=== PATIENT | female | born 1985 | race Caucasian/White ===

== ENCOUNTER 2017-07-04 01:58 | Emergency (ER) | payer MEDICAID ==
[~2017-07-04] VITALS: Ht 165.1 cm; Wt 96.8 kg
[~2017-07-04 01:58] MED LIST: ASPIRIN 32325 MG/TA1 PO; CEPHALEXIN500 M1 PO; CLEOCIN HC150 MG/CAP PO; FLAGYL500 M1 PO; IBUPROFEN PAIN200 MG PO; LEXAPRO10 MG PO; NORCO 325 MG-51 TAB PO; PEN-V250 MG PO; PRENATAL MULTI1 EAC3 PO; TYLENOL 325MG325 MG PO; ZOFRAN ODT8 M1 PO
[2017-07-04] MEDS ORDERED: [UNRECOGNIZED DRUG - OTHER] PO (02:39)
[2017-07-04] MEDS ORDERED: AMOXICILLI400 MG/52 PO (02:43)
[2017-07-04 02:51] VITALS: BP 119/75
== END 2017-07-04 02:48 | disposition home or self-care (01) ==
LOC: ED 01:58
DX: J02.0 Streptococcal pharyngitis (principal); F41.9 Anxiety disorder, unspecified; F32.9 Major depressive disorder, single episode, unspecified

== ENCOUNTER → 2018-05-08 | Outpatient (CLI) | payer MEDICAID ==
[~2018-05-08] MED LIST changes: +AMOXICILLI400 MG/52 PO; +[UNRECOGNIZED DRUG - OTHER] PO
[2018-05-08 13:51] LABS: BASO # 0.1 (0.02-0.10); EOS # 0.6 (0.04-0.40); EOS % 7.2 % (1.0-5.0); HEMATOCRIT 39.1 % (37.0-47.0); HEMOGLOBIN 13.7 g/dL (12.5-16.0); LYMPH# 2.9 (1.50-4.00); MEAN CELL VOLUME 90 fl (78-100); MEAN CORPUSCULAR HEMOGLOBIN 31 pg (27-31); MEAN CORPUSCULAR HGB CONC 35 g/dL (33-37); MEAN PLATELET VOLUME 9.7 fl (7.4-10.4); MONO # 0.8 (0.20-0.80); NEU # 4.5 (1.40-6.50); PLATELET COUNT 306 K/mm3 (130-400); RED BLOOD COUNT 4.37 M/mm3 (4.10-5.30); RED CELL DISTRIBUTION WIDTH 12.6 % (11.5-14.5); WHITE BLOOD COUNT 8.9 K/mm3 (4.8-10.8)
[2018-05-08 14:06] LABS: ALBUMIN 3.8 g/dL (3.5-5.0); CALCIUM 8.8 mg/dL (8.4-10.2); TOTAL BILIRUBIN 0.3 mg/dL (0.2-1.3); TOTAL PROTEIN 7.5 g/dL (6.3-8.2)
== END ==
LOC: LAB 13:37
PROVIDERS: Family Medicine
DX: Z00.00 Encounter for general adult medical examination without abnormal findings (principal)

== ENCOUNTER 2018-06-23 17:29 | Emergency (ER) | payer MEDICAID ==
[~2018-06-23] VITALS: Ht 162.6 cm; Wt 90.9 kg
[2018-06-23] MEDS ORDERED: CAMRESE1 TAB PO (17:43)
[2018-06-23] MEDS ORDERED: ESCITALOPRAM20 MG PO (17:43)
[2018-06-23] MEDS ORDERED: PRAZOSIN (17:43)
[2018-06-23 19:08] LABS: BASO # 0.1 (0.02-0.10); EOS # 0.4 (0.04-0.40); EOS % 4.5 % (1.0-5.0); HEMATOCRIT 36.1 % (37.0-47.0); HEMOGLOBIN 12.9 g/dL (12.5-16.0); MEAN CELL VOLUME 90 fl (78-100); MEAN CORPUSCULAR HEMOGLOBIN 32 pg (27-31); MEAN CORPUSCULAR HGB CONC 36 g/dL (33-37); MEAN PLATELET VOLUME 9.7 fl (7.4-10.4); MONO # 0.7 (0.20-0.80); NEU # 4.2 (1.40-6.50); PLATELET COUNT 288 K/mm3 (130-400); RED CELL DISTRIBUTION WIDTH 12.3 % (11.5-14.5); WHITE BLOOD COUNT 8.3 K/mm3 (4.8-10.8)
[2018-06-23 19:22] LABS: URINE APPEARANCE CLEAR; URINE BILIRUBIN NEGATIVE (NEGATIVE); URINE BLOOD 250 ery/uL (NEGATIVE); URINE COLOR YELLOW; URINE GLUCOSE NEGATIVE (NEGATIVE); URINE KETONE NEGATIVE (NEGATIVE); URINE LEUKOCYTE ESTERASE NEGATIVE (NEGATIVE); URINE MUCUS PRESENT (NOT PRESENT); URINE NITRATE NEGATIVE (NEGATIVE); URINE PROTEIN(semi-quant) TRACE mg/dL (NEGATIVE); URINE UROBILINOGEN NORMAL (NORMAL); URINE WBC 0-1 /hpf (0-3)
[2018-06-23] MEDS ORDERED: NORCO 325 MG-51 TA1 PO (20:16)
[2018-06-23 20:24] VITALS: BP 143/66
== END 2018-06-23 20:24 | disposition home or self-care (01) ==
LOC: ED 17:29
PROVIDERS: Family Medicine
DX: N83.201 Unspecified ovarian cyst, right side (principal); N93.8 Other specified abnormal uterine and vaginal bleeding; Z79.3 Long term (current) use of hormonal contraceptives; Z79.899 Other long term (current) drug therapy
CPT/HCPCS: J1885

== ENCOUNTER → 2018-09-30 | Outpatient (CLI) | payer MEDICAID ==
[~2018-09-30] MED LIST changes: +CAMRESE1 TAB PO; +ESCITALOPRAM20 MG PO; +NORCO 325 MG-51 TA1 PO; +PRAZOSIN
== END ==
LOC: RAD 11:16
DX: R05 Cough (principal)

== ENCOUNTER → 2018-10-23 | Outpatient (CLI) | payer MEDICAID | LOC: RAD 11:02 | DX: R60.0 Localized edema (principal); R93.6 Abnormal findings on diagnostic imaging of limbs; M79.604 Pain in right leg ==

== ENCOUNTER → 2018-11-05 | Outpatient (CLI) | payer MEDICAID ==
[2018-11-05 16:54] LABS: BASO # 0.1 (0.02-0.10); EOS # 0.4 (0.04-0.40); EOS % 3.9 % (1.0-5.0); HEMATOCRIT 40.3 % (37.0-47.0); HEMOGLOBIN 13.7 g/dL (12.5-16.0); LYMPH# 3.3 (1.50-4.00); MEAN CELL VOLUME 89 fl (78-100); MEAN CORPUSCULAR HEMOGLOBIN 30 pg (27-31); MEAN CORPUSCULAR HGB CONC 34 g/dL (33-37); MEAN PLATELET VOLUME 9.8 fl (7.4-10.4); MONO # 0.9 (0.20-0.80); NEU # 5.4 (1.40-6.50); PLATELET COUNT 353 K/mm3 (130-400); RED BLOOD COUNT 4.52 M/mm3 (4.10-5.30); RED CELL DISTRIBUTION WIDTH 12.5 % (11.5-14.5)
[2018-11-05 17:33] LABS: ALBUMIN 4.1 g/dL (3.5-5.0); CALCIUM 9.1 mg/dL (8.4-10.2); POTASSIUM 4.1 mmol/L (3.6-5.0); TOTAL BILIRUBIN 0.3 mg/dL (0.2-1.3); TOTAL PROTEIN 7.9 g/dL (6.3-8.2)
[2018-11-05 17:44] LABS: D-DIMER 0.94 mg/L FEU (0.15-0.50)
== END ==
LOC: LAB 16:24
PROVIDERS: Physician Assistant
DX: M79.604 Pain in right leg (principal)

== ENCOUNTER → 2018-11-07 | Outpatient (CLI) | payer MEDICAID | LOC: VAS 10:01 → RAD 10:01 | DX: R22.41 Localized swelling, mass and lump, right lower limb (principal); M79.604 Pain in right leg ==

== ENCOUNTER → 2019-02-14 | Outpatient (CLI) | payer MEDICAID | LOC: RAD 16:33 | DX: M79.671 Pain in right foot (principal); M79.672 Pain in left foot; R10.32 Left lower quadrant pain; W19.XXXA Unspecified fall, initial encounter ==

== ENCOUNTER 2019-07-06 15:02 | Emergency (ER) | payer MEDICAID ==
[~2019-07-06] VITALS: Ht 162.6 cm; Wt 92.3 kg
[2019-07-06] MEDS ORDERED: AMITRIPTYLINE H25 M2 PO (15:33)
[2019-07-06] MEDS ORDERED: PROAIR HFA0.09 MG/AC IH (15:34)
[2019-07-06 16:15] VITALS: BP 140/93
== END 2019-07-06 16:16 | disposition home or self-care (01) ==
LOC: ED 15:02
DX: S60.221A Contusion of right hand, initial encounter (principal); J45.909 Unspecified asthma, uncomplicated; F17.210 Nicotine dependence, cigarettes, uncomplicated; W01.198A Fall on same level from slipping, tripping and stumbling with subsequent striking against other object, initial encounter; Y92.009 Unspecified place in unspecified non-institutional (private) residence as the place of occurrence of the external cause

== ENCOUNTER 2019-08-10 18:48 | Emergency (ER) | payer OTHER ==
[~2019-08-10 18:48] MED LIST changes: +AMITRIPTYLINE H25 M2 PO; +PROAIR HFA0.09 MG/AC IH
[2019-08-10] MEDS ORDERED: CYCLOBENZAPRINE10 M1 PO (18:54)
[2019-08-10] MEDS ORDERED: METHOCARBAMOL500 M1 PO (18:54)
[2019-08-10] MEDS ORDERED: ESCITALOPRAM20 MG PO (18:55)
[2019-08-10 20:11] VITALS: BP 145/85
== END 2019-08-10 20:17 | disposition home or self-care (01) ==
LOC: ED 18:48
DX: S93.401A Sprain of unspecified ligament of right ankle, initial encounter (principal); S90.31XA Contusion of right foot, initial encounter; F41.9 Anxiety disorder, unspecified; F32.9 Major depressive disorder, single episode, unspecified; F17.210 Nicotine dependence, cigarettes, uncomplicated; X50.1XXA Overexertion from prolonged static or awkward postures, initial encounter; Y99.0 Civilian activity done for income or pay

== ENCOUNTER → 2020-01-05 | Outpatient (CLI) | payer MEDICAID ==
[~2020-01-05] MED LIST changes: +CYCLOBENZAPRINE10 M1 PO; +METHOCARBAMOL500 M1 PO
== END ==
LOC: LAB 12:07
DX: J45.909 Unspecified asthma, uncomplicated (principal)

== ENCOUNTER 2020-06-17 09:00 | Outpatient (RCR) | payer MEDICAID | END 2020-06-17 09:30 | disposition still patient (30) | LOC: PT 09:00 | DX: M54.5 Low back pain (principal); G89.29 Other chronic pain ==

== ENCOUNTER → 2020-06-28 | Outpatient (CLI) | payer MEDICAID ==
[2020-06-28 16:47] LABS: EOS # 0.1 (0.04-0.40); EOS % 1.1 % (1.0-5.0); HEMATOCRIT 38.2 % (37.0-47.0); LYMPH# 2.4 (1.50-4.00); MEAN CELL VOLUME 95 fl (78-100); MEAN CORPUSCULAR HEMOGLOBIN 32 pg (27-31); MEAN CORPUSCULAR HGB CONC 34 g/dL (33-37); MEAN PLATELET VOLUME 9.1 fl (7.4-10.4); MONO # 0.8 (0.20-0.80); NEU # 9.7 (1.40-6.50); PLATELET COUNT 294 K/mm3 (130-400); RED BLOOD COUNT 4.02 M/mm3 (4.10-5.30); RED CELL DISTRIBUTION WIDTH 13.6 % (11.5-14.5); WHITE BLOOD COUNT 13.2 K/mm3 (4.8-10.8)
[2020-06-28 16:57] LABS: POTASSIUM 3.6 mmol/L (3.5-5.1)
[2020-06-28 16:58] LABS: ALBUMIN 3.6 g/dL (3.5-5.0)
[2020-06-28 16:59] LABS: CALCIUM 8.8 mg/dL (8.3-10.5)
[2020-06-28 17:00] LABS: TOTAL PROTEIN 6.9 g/dL (6.4-8.3)
[2020-06-28 17:02] LABS: TOTAL BILIRUBIN 0.3 mg/dL (0.2-1.2)
== END ==
LOC: LAB 16:36
PROVIDERS: Family Medicine
DX: Z00.00 Encounter for general adult medical examination without abnormal findings (principal); E78.5 Hyperlipidemia, unspecified

== ENCOUNTER → 2020-07-09 | Outpatient (CLI) | payer MEDICAID | LOC: RAD 11:06 | DX: M47.816 Spondylosis without myelopathy or radiculopathy, lumbar region (principal); M53.3 Sacrococcygeal disorders, not elsewhere classified; M25.78 Osteophyte, vertebrae ==

== ENCOUNTER 2020-09-09 10:00 | Outpatient (RCR) | payer MEDICAID | END 2020-09-27 | disposition home or self-care (01) | LOC: PT | DX: G89.29 Other chronic pain (principal); M54.5 Low back pain ==

== ENCOUNTER → 2020-09-21 | Outpatient (CLI) | payer MEDICAID | LOC: RAD 07:00 | DX: M43.8X4 Other specified deforming dorsopathies, thoracic region (principal); M47.816 Spondylosis without myelopathy or radiculopathy, lumbar region ==

== ENCOUNTER → 2020-12-23 | Outpatient (CLI) | payer MEDICAID | LOC: LAB 07:09 | DX: Z03.89 Encounter for observation for other suspected diseases and conditions ruled out (principal); Z20.822 Contact with and (suspected) exposure to COVID-19 ==

== ENCOUNTER → 2021-05-24 | Outpatient (CLI) | payer MEDICAID | LOC: RAD 15:20 | DX: R05 Cough (principal); G89.29 Other chronic pain ==

== ENCOUNTER → 2021-06-07 | Outpatient (CLI) | payer MEDICAID | LOC: RAD 06:42 | DX: M43.8X4 Other specified deforming dorsopathies, thoracic region (principal) ==

== ENCOUNTER → 2022-03-31 | Outpatient (CLI) | payer MEDICAID | LOC: RAD 08:57 | DX: M25.551 Pain in right hip (principal); M25.552 Pain in left hip ==